=== PATIENT | female | born 2000 | race Caucasian/White ===

== ENCOUNTER 2023-07-10 02:41 | Inpatient (IN) ==
[2023-07-10] MEDS ORDERED: LIDOCAINE 1% LOCAL 20 ML VIAL INFIL PRN (03:20)
[2023-07-10] MEDS: LACTATED RINGER'S 1,000 ML IV PRN ×3 (03:30→08:17)
[2023-07-10 04:02] LABS: Hematocrit (blood only) 33.2 % (37.0-47.0); Hemoglobin 11.2 g/dl (12.0-16.0); Mean Corpuscular Hemoglobin 28.6 pg (25.0-34.0); Mean Corpuscular Hgb Conc 33.7 g/dL (32.0-36.0); Mean Corpuscular Volume 84.9 fL (80.0-100.0); Platelet Count 241 K/uL (130-400); RDW Standard Deviation 45.9 fL (36.4-46.3); Red Blood Count 3.91 M/uL (4.20-5.40); White Blood Count 11.85 K/ul (4.8-10.8)
[2023-07-10] MEDS ORDERED: LIDOCAINE 2%/EPINEPHRINE 1:200,000 20 ML PF ONE (04:09)
[2023-07-10] MEDS ORDERED: fentaNYL citrate PF 100 MCG/2 ML VIAL ONE (04:09)
[2023-07-10] MEDS ORDERED: SODIUM CHLORIDE 0.9% PF INJ 10 ML VIAL ONE (04:09)
[2023-07-10] MEDS ORDERED: ePHEDrine sulfate 50 MG/ML AMP ONE (04:09)
[2023-07-10] MEDS ORDERED: BUPIVACAINE 0.25% PF 30 ML VIAL ONE (04:09)
[2023-07-10] MEDS ORDERED: fentaNYL 2MCG/ML ROPIVACAINE 1.25MG/ML 100 ML BAG EPI ONE (04:10)
[2023-07-10] MEDS ORDERED: NALBUPHINE HCL INJ 10 MG/ML AMP IV PRN (04:42)
[2023-07-10] MEDS ORDERED: fentaNYL citrate PF 100 MCG/2 ML VIAL EPI STA (04:42)
[2023-07-10] MEDS ORDERED: NALOXONE HCL 0.4 MG/1 ML VIAL/CARP IV PRN (04:42)
[2023-07-10] MEDS ORDERED: SODIUM CHLORIDE 0.9% PF INJ 10 ML VIAL EPI STA (04:42)
[2023-07-10] MEDS ORDERED: LIDOCAINE 2%/EPINEPHRINE 1:200,000 20 ML PF EPI STA (04:42)
[2023-07-10] MEDS ORDERED: fentaNYL 2MCG/ML ROPIVACAINE 1.25MG/ML 100 ML BAG EPI PRN (04:42)
[2023-07-10] MEDS ORDERED: LIDOCAINE 2% MPF LOCAL 5 ML VIAL EPI PRN (04:42)
[2023-07-10] MEDS ORDERED: SODIUM CHLORIDE 0.9% PF INJ 10 ML VIAL EPI PRN (04:42)
[2023-07-10] MEDS ORDERED: ePHEDrine sulfate 50 MG/ML AMP IV PRN (04:42)
[2023-07-10] MEDS ORDERED: BUPIVACAINE 0.25% PF 30 ML VIAL EPI STA (04:42)
[2023-07-10] MEDS ORDERED: NALOXONE HCL 1 MG in SODIUM CHLORIDE 0.9% 1000ML 1,000 ML IV PRN (04:42)
[2023-07-10] MEDS ORDERED: fentaNYL citrate PF 100 MCG/2 ML VIAL EPI PRN (04:42)
[2023-07-10] MEDS ORDERED: ROPIVACAINE 0.5% PF 5 MG/ML 20 ML VIAL EPI PRN (04:42)
[2023-07-10] MEDS ORDERED: BUPIVACAINE 0.25% PF 30 ML VIAL EPI PRN (04:42)
[2023-07-10] MEDS ORDERED: diphenhydrAMINE 50 MG/ML VIAL IV PRN (04:42)
--- NOTE | 2023-07-10 04:42 | Anesthesiology Consultation ---
Date of Service July 10, 2023 Assessment & Plan Chart Review Chart Review: Patient NOT seen in Pre Admission Testing and Acceptable Risk for Labor Epidural Consults Requested none History Height/Weight Height: 5 ft 4 in Weight: 102.965 kg Allergies Allergy/AdvReac Type Severity Reaction Status Date / Time No Known Allergies Allergy Verified 07/06/23 08:54 Medications Home Medications Medication Instructions Recorded Confirmed Last Taken albuterol sulfate 90 mcg/actuation 2 puff inhalation Q6H PRN asthma 09/15/21 07/10/23 3 Weeks Ago aerosol inhaler ~04/18/23 prenat.vits,dean,ydb-rejn-hziym 1 tab PO DAILY 12/08/22 07/10/23 07/09/23 beclomethasone dipropionate 80 1 inh inhalation DAILY 03/01/23 07/10/23 07/09/23 mcg/actuation HFA breath activated aerosol (Qvar RediHaler) sertraline 50 mg tablet (Zoloft) 50 mg PO DAILY #60 tabs 03/09/23 07/10/23 07/09/23 iron 15 mg PO DAILY 05/09/23 07/10/23 05/08/23 loratadine 10 mg tablet 10 mg PO DAILY PRN Allergy Symptoms 05/09/23 07/06/23 07/08/23 ondansetron 4 mg disintegrating 4 mg PO Q6H PRN nausea and 05/09/23 07/10/23 07/10/23 tablet vomiting #20 tabs ondansetron 4 mg disintegrating 4 mg PO Q8H PRN nausea and 06/30/23 07/06/23 Unknown tablet vomiting #30 tabs Active Medications Generic Name Dose Route Start Last Admin Trade Name Freq PRN Reason Stop Dose Admin Lactated Ringer's 1,000 mls @ 125 mls/hr 07/10/23 03:20 07/10/23 04:30 Lr IV 07/12/23 03:19 999 mls/hr .Q8H PRN Administration L&D Protocol Protocol Past Medical History Medical History Allergy-induced asthma uses PRN inh once weekly on avg Anxiety and depression Bright red rectal bleeding Frequent UTI GERD (gastroesophageal reflux disease) diet controlled History of COVID-19 01/2020; loss of taste/smell, cough, sob, body aches, pneumonia - states "lungs still don't feel the same." IBS (irritable bowel syndrome) Peptic ulcer Past Family History Family History Grandmother (Paternal) Cancer Ulcerative colitis Colorectal cancer Grandmother (Maternal) Breast cancer Other No family history of adverse response to anesthesia Denies family history of Crohn's disease Past Surgical History Surgical History [place] teeth extracted Social History Smoking Status: Never smoker Do You Dip or Chew Tobacco: No Hx Alcohol Use: No Hx Substance Use: No substance use type: does not use Physical Exam Vital Signs Last Vital Signs Temp 98.8 F 07/10/23 03:15 Pulse 74 07/10/23 04:39 Resp 20 07/10/23 04:13 BP 129/77 07/10/23 04:18 Pulse Ox 99 07/10/23 04:39 Testing Laboratory Results 07/10/23 03:42
[2023-07-10] MEDS ORDERED: ONDANSETRON INJ 2 MG/ML 2 ML VIAL IV PRN (07:54)
--- NOTE | 2023-07-10 09:35 | Labor Progress Brief Note ---
Date of Service July 10, 2023 Subjective Comfortable w/ epidural Assessment & Plan (1) SROM (spontaneous rupture of membranes): Plan: 23 yo G1 at 38 1/7 wga admitted w/ srom/labor VSS Fetus cat 1 Labor - progressing spontaneously, arom of forebag. Reviewed prior growth, discussed potential impact on labor, pushing, risk of shoulder. Pt aware GBS neg epidural in place Admission and Anticipated Discharge Date Admission Date: July 10, 2023 Physical Exam Genitourinary: Manual OB Exam: + cervical dilation 8 cm, + cervical effacement 90%, + station 0 and + amniotic fluid (arom forebag) OB Exam Monitor Tracing: + external FHT monitor used, + external uterine monitor used (q3) and + category I (130/mod/+accel/-decel) Results & Data Vital Signs (Past 12 Hours) Vital Signs Temp Pulse Resp BP Pulse Ox 07/10/23 07:15 97.7 F 18 07/10/23 09:29 69 99 07/10/23 09:24 99 07/10/23 09:24 70 07/10/23 09:24 70 128/65 07/10/23 09:19 71 98 07/10/23 09:14 51 L 97 07/10/23 09:03 97.9 F 07/10/23 09:09 51 L 97 07/10/23 09:10 49 L 96/49 L 07/10/23 09:04 54 L 97 07/10/23 09:00 18 07/10/23 09:00 18 07/10/23 08:59 53 L 98 07/10/23 08:54 99 07/10/23 08:54 58 L 07/10/23 08:54 53 L 100/53 L 07/10/23 08:49 58 L 98 07/10/23 07:30 18 07/10/23 07:30 18 07/10/23 08:30 20 07/10/23 08:30 20 07/10/23 08:44 51 L 99 07/10/23 08:00 18 07/10/23 08:00 18 07/10/23 08:39 52 L 99 07/10/23 08:40 51 L 105/51 L 07/10/23 08:34 52 L 100 07/10/23 08:29 57 L 100 07/10/23 08:24 54 L 95/50 L 99 07/10/23 08:19 55 L 99 07/10/23 08:15 51 L 100/51 L 07/10/23 08:14 54 L 99 07/10/23 08:09 58 L 99 07/10/23 08:04 58 L 99 07/10/23 07:59 58 L 99 07/10/23 07:55 54 L 115/61 07/10/23 07:54 55 L 100 07/10/23 07:49 67 98 07/10/23 07:44 55 L 100 07/10/23 07:39 55 L 98 07/10/23 07:40 59 L 110/69 07/10/23 07:34 55 L 98 07/10/23 07:29 70 98 07/10/23 07:24 61 109/57 L 99 07/10/23 07:19 55 L 99 07/10/23 07:14 71 100 07/10/23 07:09 100 07/10/23 07:09 59 L 07/10/23 07:09 58 L 126/70 07/10/23 07:04 56 L 100 07/10/23 07:00 18 07/10/23 07:00 18 07/10/23 06:59 61 99 07/10/23 06:54 98 07/10/23 06:54 51 L 07/10/23 06:54 52 L 99/51 L 07/10/23 06:49 53 L 98 07/10/23 06:44 55 L 99 07/10/23 06:30 18 07/10/23 06:30 18 07/10/23 06:39 100 07/10/23 06:39 56 L 07/10/23 06:39 49 L 98/54 L 07/10/23 06:34 64 100 07/10/23 06:29 74 99 07/10/23 06:25 51 L 96/49 L 07/10/23 06:24 52 L 98 07/10/23 06:19 53 L 99 07/10/23 06:14 57 L 100 07/10/23 06:09 59 L 100/51 L 100 07/10/23 06:04 62 100 07/10/23 05:06 18 07/10/23 05:06 18 07/10/23 05:10 18 07/10/23 05:10 18 07/10/23 05:30 18 07/10/23 05:30 18 07/10/23 06:00 18 07/10/23 06:00 18 07/10/23 05:59 56 L 100 07/10/23 05:54 70 100 07/10/23 05:51 59 L 18 108/57 L 07/10/23 05:49 61 100 07/10/23 05:30 18 07/10/23 05:30 18 07/10/23 05:45 53 L 18 113/55 L 07/10/23 05:44 54 L 100 07/10/23 05:40 54 L 18 105/53 L 07/10/23 05:39 59 L 100 07/10/23 05:34 75 100 07/10/23 05:35 61 18 113/58 L 07/10/23 05:31 73 115/67 07/10/23 05:29 73 100 07/10/23 04:40 20 07/10/23 04:40 20 07/10/23 05:06 18 07/10/23 05:06 97.9 F 18 07/10/23 05:24 59 L 100 07/10/23 05:25 60 18 107/53 L 07/10/23 05:19 65 116/57 L 100 07/10/23 05:18 68 18 120/58 L 07/10/23 05:15 61 112/55 L 07/10/23 05:14 61 100 07/10/23 05:13 64 18 118/56 L 07/10/23 05:11 62 118/59 L 07/10/23 05:09 66 121/58 L 99 07/10/23 05:07 68 116/56 L 07/10/23 05:05 63 119/58 L 07/10/23 05:04 59 L 18 99 07/10/23 05:02 67 127/60 07/10/23 04:59 58 L 100 07/10/23 04:54 73 100 07/10/23 04:49 69 100 07/10/23 04:30 20 07/10/23 04:30 20 07/10/23 04:39 74 99 07/10/23 04:34 79 100 07/10/23 04:29 69 100 08/12/23 04:13 20 07/10/23 04:13 20 07/10/23 04:24 79 100 07/10/23 04:19 84 100 07/10/23 04:18 68 129/77 07/10/23 03:45 20 07/10/23 03:45 20 07/10/23 03:15 18 07/10/23 03:15 98.8 F 18 07/10/23 03:03 69 131/82 07/10/23 02:58 18 Coding Level of Care Code None Diagnoses SROM (spontaneous rupture of membranes)
[2023-07-10] MEDS: OXYTOCIN 30 UNITS/500 ML BAG IV PRN ×2 (10:52→12:08)
--- NOTE | 2023-07-10 11:21 | Delivery Summary ---
Vaginal Delivery Summary Date of Service July 10, 2023 Vaginal Delivery Summary and 2nd Degree LAC PREOPERATIVE DIAGNOSIS: 1. Single intrauterine at 38 1/7 wga 2. SROM 3. Labor POSTOPERATIVE DIAGNOSIS: 1. Single intrauterine at 38 1/7 wga 2. SROM 3. Labor 4. Delivered PROCEDURE: 1. Normal spontaneous vaginal delivery. SURGEON: Cecilia Lynn MD ANESTHESIA: Epidural. ESTIMATED BLOOD LOSS: 300 mL FLUIDS: Continuous LR. URINE OUTPUT: Not measured. COMPLICATIONS: None. CONDITION: Stable. INDICATIONS: 23 yo G1 at 38 1/7 wga presented early this AM w/ SROM and contractions, found to be ruptured on arrival. She was 2cm and continued to progress spontaneously. She received an epidural for pain control. She A forebag was ruptured and she continued to progress spontaneously to complete and desired to push FINDINGS: A viable male , weight pending with Apgars of 8 and 9 at 1 and 5 minutes respectively. SPECIMEN: Cord blood OPERATIVE REPORT: The patient progressed to 10 cm, 100% effaced and +2 station, pushed over intact perineum with anesthesia to deliver a viable male infant, weight and Apgars as above. Head of delivered in JORDAN position. No nuchal cord was present. Body and shoulders were delivered without difficulty. was delivered to maternal abdomen and nursing staff. Delayed cord clamping was performed for 60 seconds. Cord was clamped and cut. Cord blood was obtained. Placenta delivered spontaneously intact with 3-vessel cord. IV oxytocin and fundal massage were given for excellent hemostasis. Vagina, cervix, perineum, and placenta were inspected. A second degree laceration was repaired using 3-[address]-1. A small left vaginal wall tear was repaired using 4-0 vicryl on an SH. There was good hemostasis Sponge and needle counts correct x2. No sponges were left behind. Mother and stable in immediate period. [facility] Vaginal Delivery Charge Vaginal Delivery Codes: 60087 global code for the antepartum, delivery, and post- Delivery Type Details: and 2nd Degree LAC
[2023-07-10] MEDS ORDERED: OXYTOCIN 30 UNITS/500 ML BAG IV PRN (11:41)
[2023-07-10] MEDS ORDERED: bisacodyL 10 MG SUPP PR PRN (11:41)
[2023-07-10] MEDS ORDERED: HYDROCORTISONE ACETATE 25 MG SUPP PR PRN (11:41)
[2023-07-10] MEDS ORDERED: ALBUTEROL HFA 8 GM INHALER INH PRN (11:41)
[2023-07-10] MEDS ORDERED: BENZOCAINE 20% SPRY 85 APPLN/85 GM CAN EXT PRN (11:41)
[2023-07-10] MEDS ORDERED: DIPHTHERIA/TETANUS/PERTUSSIS Vaccine (Tdap, Age 7+yrs) 0.5mL SYR/VL IM ONE (11:41)
--- NOTE | 2023-07-10 12:03 | Anesthesia Procedure Note ---
Date of Service July 10, 2023 Anesthesia Post Epidural Note Vital Signs Vital Signs: Temp Pulse Resp BP Pulse Ox 99.7 F H 57 L 20 108/58 L 98 07/10/23 11:15 07/10/23 11:59 07/10/23 11:15 07/10/23 11:57 07/10/23 11:59 Pain Intensity Hip: Pain Intensity: 0 Notes Mental Status: alert / awake / arousable and participated in evaluation Nausea / Vomiting: adequately controlled Pain: adequately controlled Airway Patency, RR, SpO2: stable & adequate BP & HR: stable & adequate Hydration State: stable & adequate Neuraxial Anesthesia: was administered and sensory block is resolving Anesthetic Complications: no major complications apparent and Pt Satisfied with anesthetic care Epidural: Removed without complications and With tip intact
[2023-07-10] MEDS: IBUPROFEN 600 MG TAB PO PRN ×2 (15:47→23:17)
[2023-07-10] MEDS: ACETAMINOPHEN 325 MG TAB PO PRN ×2 (15:55→23:18)
[2023-07-10] MEDS: DOCUSATE SODIUM 100 MG CAP PO SCH (20:01)
[2023-07-10] MEDS ORDERED: Nursing to Pharmacy Communication SCH ×2 (20:15→23:30)
[2023-07-10] MEDS: BECLOMETHASONE DIP HFA 80 MCG 10.6 GM INH INH SCH (22:13)
--- NOTE | 2023-07-11 07:33 | Obstetrical Progress Note ---
Date of Service July 11, 2023 Assessment & Plan (1) Encounter for care and examination after delivery: 23 yo PP1 from , doing well -Meeting all pp milestones. Offered to look at perineum due to episode of pain, appears appropriate given timing from delivery and pain is adequately managed w/ meds at this point. Reviewed meds and measures to use for comfort, pt aware -A+/rubella immune/ -f/u 6 weeks for appt, continue routine pp care Subjective Ambulation: ambulating normally Voiding: no voiding problems Passing Gas:: Yes Diet Tolerance:: regular diet Lochia:: Small Feeding Type:: breast feeding Did have episode of sharp perineal pain once yesterday afternoon. Is still pretty sore below but much better than that episode, pain well managed with medication. Review of Systems Denies fevers, chills, n/v, WILLIAM, CP, SOB Physical Exam Constitutional WD/WN, vitals as above no acute distress Respiratory normal respiratory effort, lungs clear to auscultation Cardiovascular RRR, no murmur, no edema Gastrointestinal (Abdomen) Percussion/Palpation: abdomen soft; abdomen nontender fundus firm at umbilicus and NT Musculoskeletal BLE symmetric, nonerythematous, nontender Genitourinary Vulva slightly swollen but appropriate, no abnormal areas of swelling noted. Gentle digital exam does not reveal obvious hematoma Results & Data Vital Signs (Past 12 Hours) Vital Signs Temp Pulse Resp BP Pulse Ox O2 Del Method 07/11/23 03:05 98.4 F 69 18 107/69 99 Room Air 07/10/23 23:00 97.7 F 66 18 111/72 100 Room Air 07/10/23 19:35 Room Air 07/10/23 19:35 98.1 F 62 18 95/57 L 98 Room Air
[2023-07-11] MEDS: PRENATAL VITAMIN 1 TAB PO SCH (08:36)
[2023-07-11] MEDS: FERROUS SULFATE 325 MG TAB PO SCH (08:36)
[2023-07-11] MEDS: IBUPROFEN 600 MG TAB PO PRN ×2 (08:36→14:05)
[2023-07-11] MEDS: ACETAMINOPHEN 325 MG TAB PO PRN ×2 (08:36→14:05)
[2023-07-11] MEDS: DOCUSATE SODIUM 100 MG CAP PO SCH ×2 (08:36→20:20)
[2023-07-11] MEDS ORDERED: FLUTICASONE FUROATE 100MCG 14 PUFFS/INHALER INH SCH (09:00)
[2023-07-11] MEDS ORDERED: SERTRALINE HCL 50 MG TABLET PO SCH ×2 (09:00→21:00)
[2023-07-11] MEDS ORDERED: BECLOMETHASONE DIP HFA 80 MCG 10.6 GM INH INH SCH (09:00)
--- NOTE | 2023-07-11 19:54 | Obstetrical Progress Note ---
Date of Service <Tod Victor MD - Last Filed: 07/12/23 06:46> July 11, 2023 Assessment & Plan <Tod Victor MD - Last Filed: 07/12/23 06:46> (1) care following vaginal delivery: (2) Encounter for care and examination after delivery: Plan 23 yo , status post on 07/10/23 - Pt is doing well clinically. Feels well today. Eating well, voiding well, ambulating well. Pain well controlled with PRN pain meds. - Routine care -- OOB, ambulation, diet progression as tolerated Vital Signs reviewed and mostly WNL (Tmax at 37.6) with following exceptions: Low diastolic BP readings: 96/58, 95/57 Hemoglobin Reviewed. 11.2 (07/10/23) (today). Blood Type: A+, GBS-, Rubella Immune. Encourage ambulation, monitor and control pain with Motrin PRN, resume regular diet, monitor lochia. Breast feeding encouraged. After discharge will have 6 week follow-up with Dr. Velez. Pt counselled on discharge instructions. <Cecilia Lynn MD - Last Filed: 07/12/23 07:22> (1) care following vaginal delivery: (2) Encounter for care and examination after delivery: Subjective <Tod Victor MD - Last Filed: 07/12/23 06:46> Ambulation: ambulating normally (soreness around the stitches area) Voiding: no voiding problems and no incontinence (no urge to defacate yet) Passing Gas:: Yes Diet Tolerance:: regular diet Lochia:: Small (passed a reddish blood clot, size of a half-dollar) Feeding Type:: breast feeding (formula supplementation as needed) Current Pain Level(1-10): 4 (perineal pain worse when walking, sitting up, on commode; cramping pain too) 23 yo F , s/p day 2. Review of Systems All systems reviewed & are unremarkable except as noted in HPI & below Constitutional: no fever or no chills Eyes: no diplopia or no worsening vision Respiratory: + dyspnea on exertion (mild PLEITEZ since delivery); no cough Cardiovascular: no chest pain or no palpitations Breast: + breast pain (pain latching and sucking) Gastrointestinal: + nausea (mild nausea); no vomiting or no diarrhea/loose stools Genitourinary (female): + dysuria (feels like it could be due to perineal lac); no urinary frequency or no urinary urgency Musculoskeletal: + swelling (right foot feels "tight", no calf pain); no myalgia or no body aches Integumentary: no rash Physical Exam <Tod Victor MD - Last Filed: 07/12/23 06:46> Constitutional WD/WN, vitals as above Respiratory normal respiratory effort, lungs clear to auscultation Cardiovascular RRR, no murmur, no edema Gastrointestinal (Abdomen) normal bowel sounds, soft, nontender, no hepatosplenomegaly somewhat difficult to feel that fundus, but seemed to be about 3 cm below the umbilicus Musculoskeletal Extremities: + foot abnormality Right (noticeable edema in right foot) <Cecilia Lynn MD - Last Filed: 07/12/23 07:22> Co-Signing Physician Notes Resident Physician Supervision Note: I interviewed and examined the patient. Discussed with Dr. Victor and agree with findings and plan as documented in the note. Any exceptions or clarifications are listed here: PP2 s/p . Having some right foot swelling but no calf tenderness. Noted some SOB w/ activity but says it feels like her usual asthma SOB, just without the wheezing. Pain managed w/ meds and improving. VSS, O2 sat wnl. Exam benign and wnl, calves symmetric, NT, nonerythematous. Discussed propping feet up and moving to help with foot swelling. Suspect SOB is related to asthma as VSS, O2sat is normal, and low suspicion for PE. Will have her use her inhaler as she usually reserves that for if she is wheezing and make sure that it improves with it Documented By: Cecilia Lynn MD
[2023-07-11] MEDS ORDERED: bisacodyL 5 MG TABEC PO SCH (20:00)
[2023-07-11] MEDS: BECLOMETHASONE DIP HFA 80 MCG 10.6 GM INH INH SCH (22:11)
[2023-07-12] MEDS: IBUPROFEN 600 MG TAB PO PRN ×2 (01:43→08:00)
[2023-07-12] MEDS: ACETAMINOPHEN 325 MG TAB PO PRN ×2 (01:45→08:00)
[2023-07-12] MEDS: DOCUSATE SODIUM 100 MG CAP PO SCH (08:00)
[2023-07-12] MEDS: PRENATAL VITAMIN 1 TAB PO SCH (08:00)
[2023-07-12] MEDS: FERROUS SULFATE 325 MG TAB PO SCH (08:00)
--- NOTE | 2023-07-14 14:33 | History & Physical Report ---
Date of Service July 10, 2023 Assessment & Plan (1) SROM (spontaneous rupture of membranes): (2) Normal labor: (3) Supervision of normal intrauterine in primigravida: Nydia García is a 23-year-old G1, P0 at 38 weeks gestational age presents with spontaneous rupture of membranes and early labor. 1. Fetus-category 1 2. Labor-spontaneous rupture of membranes and appears to be an early labor. We will continue to monitor and augment as needed 3. GBS negative 4. Vitals within normal limits History of Present Illness Primary Care Provider: Jay García is a 23-year-old G1, P0 at 38 weeks gestational age presents with spontaneous rupture membranes with bleeding and early labor. complicated by asthma. OB Labs: Blood Type A Positive 01/12/23 Antibody Screen NEGATIVE 01/12/23 Hemoglobin 11.0 g/dl (12.0-16.0) L 05/09/23 Hematocrit 33.4 % (37.0-47.0) L 05/09/23 Mean Corpuscular Volume 86.3 fL (80.0-100.0) 05/09/23 Platelet Count 194 K/uL (130-400) 05/09/23 Rubella IgG Antibody Immune (Immune) 01/12/23 Rapid Plasma Reagin Nonreactive (Nonreactive) 01/12/23 Hepatitis B Surface Antigen. NON-REACTIVE (NON-REACTIVE) 01/12/23 Hepatitis C Antibody (EIA) NON-REACTIVE (NON-REACTIVE) 01/12/23 HIV (1&2) Ag and Ab Confirmation NON-REACTIVE (NON-REACTIVE) 01/12/23 Glucose 1 Hour 50 gm Load 105 mg/dl (70-130) 05/04/23 Maternal Serum Alpha Fetoprotein 42.1 ng/mL 02/09/23 OB Optional Labs: Chlamydia trachomatis RNA Not Detected (NotDetected) 12/14/22 Neisseria gonorrhoeae RNA Not Detected (NotDetected) 12/14/22 Thyroid Stimulating Hormone (TSH) 2.997 uIu/ml (0.300-4.500) 03/01/23 Alpha Fetoprotein Triple Screen SEE NOTE 02/09/23 Labs Reviewed: cf/sma-negative--mln cfdna-low risk--mln afp neg--akh Allergies Allergy/AdvReac Type Severity Reaction Status Date / Time No Known Allergies Allergy Verified 07/06/23 08:54 Home Medications Medication Instructions Recorded Confirmed Type albuterol sulfate 90 mcg/actuation 2 puff inhalation Q6H PRN asthma 09/15/21 07/10/23 History aerosol inhaler prenat.vits,dean,tqa-glvq-ilkun 1 tab PO DAILY 12/08/22 07/10/23 History beclomethasone dipropionate 80 1 inh inhalation DAILY 03/01/23 07/10/23 History mcg/actuation HFA breath activated aerosol (Qvar RediHaler) sertraline 50 mg tablet (Zoloft) 50 mg PO DAILY #60 tabs 03/09/23 07/10/23 Rx iron 15 mg PO DAILY 05/09/23 07/10/23 History loratadine 10 mg tablet 10 mg PO DAILY PRN Allergy Symptoms 05/09/23 07/06/23 History ondansetron 4 mg disintegrating 4 mg PO Q6H PRN nausea and 05/09/23 07/10/23 Rx tablet vomiting #20 tabs breast pump #1 ea 07/12/23 Rx Patient History Medical History Allergy-induced asthma uses PRN inh once weekly on avg Anxiety and depression Bright red rectal bleeding Frequent UTI GERD (gastroesophageal reflux disease) diet controlled History of COVID-19 01/2020; loss of taste/smell, cough, sob, body aches, pneumonia - states "lungs still don't feel the same." IBS (irritable bowel syndrome) Peptic ulcer Surgical History [place] teeth extracted Family History Grandmother (Paternal) Cancer Ulcerative colitis Colorectal cancer Grandmother (Maternal) Breast cancer Other No family history of adverse response to anesthesia Denies family history of Crohn's disease Social History (Updated 07/10/23 @ 02:58 by Dorcas Milligan RN) Smoking Status: Never smoker Second Hand Exposure: No; Do You Dip or Chew Tobacco: No; Hx Alcohol Use: No Hx Substance Use: No Preferred Language: Citizen Of [place] Communication Ability: Effective Catering Assistant Required: No Beliefs That Will Affect Care: None marital status: marital status details: Jayjay (25) [phone] Current Living Situation: Spouse Current Living Situation Comment: lives with Jayjay current occupational status: unemployed current occupation: Sub teacher Feels Safe at Home: Yes Assistive Devices: Contacts Physical Exam Genitourinary: OB Exam Abdomen: + vertex Manual OB Exam: + cervical dilation 2 cm, + cervical effacement 50%, + station -2 and + amniotic fluid bloody OB Exam Monitor Tracing: + external FHT monitor used, + external uterine monitor used, + category I and + normal FHT variability Patient noted to be grossly ruptured. Minimal blood noted at time of exam. Results & Data Vital Signs (Past 12 Hours) Vital Signs Pulse Resp BP 07/10/23 03:03 69 131/82 07/10/23 02:58 18 Coding Level of Care Code None Diagnoses SROM (spontaneous rupture of membranes) Normal labor O80; Z37.9 Supervision of normal intrauterine in primigravida Z34.00
== END 2023-07-12 11:05 | disposition home or self-care (01) | DRG 807 ==
LOC: OPB 02:41 → 4S1 02:47 → 4E2 13:54
DX: Z37.0 Single live birth; Z3A.38 38 weeks gestation of pregnancy; O70.1 Second degree perineal laceration during delivery

== ENCOUNTER 2025-10-24 03:37 | Inpatient (IN) ==
[2025-10-24] MEDS ORDERED: LIDOCAINE 1% LOCAL 20 ML VIAL INFIL PRN (03:52)
[2025-10-24] MEDS ORDERED: OXYTOCIN 30 UNITS/NSS 30 UNITS/500 ML BAG IV PRN (03:52)
[2025-10-24] MEDS: LACTATED RINGER'S 1,000 ML IV PRN (04:00)
--- NOTE | 2025-10-24 04:07 | History & Physical Report ---
Date of Service October 24, 2025 Assessment & Plan (1) Encounter for supervision of normal in multigravida: Plan: Admit for labor. Desires epidural. FHT, toco, labs. Admission and Anticipated Discharge Date Admission Date: October 24, 2025 History of Present Illness Chief Complaint: labor Primary Care Provider: LORNA Alcala 25yo @ 37 6/7, here for contractions. Started devante yesterday evening around 5pm, increased overnight. No leaking, no bleeding. + movement. Was 3cm in office yesterday. and Delivery Plans Obesity (BMI between 35-39 @ beginning of ) *Growth US @ 32 wks *Weekly NSTs @ 36wks Hepatitis B non immune- encouraged to see PCP for vaccine Hypothyroidism Gestational Diabetes Growth u/s's q 4 weeks Allergies Allergy/AdvReac Type Severity Reaction Status Date / Time No Known Allergies Allergy Verified 10/23/25 08:44 Home Medications Medication Instructions Recorded Confirmed Type albuterol sulfate 90 mcg/actuation 2 puff inhalation Q6H PRN asthma 09/15/21 10/23/25 History aerosol inhaler PNV no.[id number] PO 03/21/25 10/23/25 History [ Gummies] sertraline 50 mg tablet (Zoloft) 25 mg PO DAILY 03/23/25 10/23/25 History levothyroxine 25 mcg tablet 25 mcg PO DAILY #30 tabs 07/25/25 10/23/25 Rx ondansetron 4 mg disintegrating 4 mg PO TID PRN nausea and 07/25/25 10/23/25 Rx tablet vomiting #90 tabs docusate sodium [Colace] PO PRN 08/22/25 10/23/25 History inulin [Fiber Gummies] PO 08/22/25 10/23/25 History lactase [Lactaid] PO PRN 08/22/25 10/23/25 History simethicone [Gas-X] PO PRN 08/22/25 10/23/25 History acetone (urine) test (Ketone Urine #50 ea 09/21/25 10/23/25 Rx Test strips) blood sugar diagnostic (Accu-Chek #150 ea 09/21/25 10/23/25 Rx Guide test strips) blood-glucose meter (Accu-Chek #1 ea 09/21/25 10/23/25 Rx Guide Glucose Meter) lancets (Accu-Chek Softclix #150 ea 09/21/25 10/23/25 Rx Lancets) ondansetron 4 mg disintegrating 4 mg PO Q8H PRN nausea and 10/04/25 10/23/25 Rx tablet vomiting #30 tabs Patient History Medical History OCD (obsessive compulsive disorder) Panic attack Varicella vaccination Bacterial vaginosis Asthma Premenstrual syndrome Dyspareunia, female Irritable bowel syndrome with diarrhea Chronic diarrhea History of COVID-19 Frequent UTI GERD (gastroesophageal reflux disease) Anxiety and depression Allergy-induced asthma Peptic ulcer Bright red rectal bleeding Surgical History [place] teeth extracted Family History Grandmother (Paternal) Cancer Ulcerative colitis Colorectal cancer Grandmother (Maternal) Breast cancer Other No family history of adverse response to anesthesia Denies family history of Ovarian cancer Crohn's disease Social History Smoking Status: Never smoker Second Hand Exposure: No; Do You Dip or Chew Tobacco: No; Hx Alcohol Use: No Hx Substance Use: No Preferred Language: [place] Communication Ability: Effective Instrumental Music Teacher Required: No Beliefs That Will Affect Care: None marital status: marital status details: Jayjay Erickson (27) [phone] Current Living Situation: Spouse and Family Current Living Situation Comment: lives with , child, dogs current occupational status: unemployed and student current occupation: Sub teacher How many Children do You have: 1 Feels Safe at Home: Yes Childhood Exposure to Second-Hand Smoke: No Diet: regular caffeine: No Dental Care, Regularly: Yes Physical Activity Frequency: 5-6 Times per Week Physical Activity Frequency Comment: Walks 3 miles a day with the dogs and goes to the gym 5 days/wk. Seatbelt Use: always Sunscreen Use: Yes Assistive Devices: Contacts Review of Systems All systems reviewed & are unremarkable except as noted in HPI & below Physical Exam Physical Exam: FHT Cat 1 [place] Q2-4 SVE 4-5cm per RN exam Constitutional: WD/WN, vitals as above Respiratory: normal respiratory effort, lungs clear to auscultation no respiratory distress Cardiovascular: Rate/Rhythm: regular rate and regular rhythm Gastrointestinal (Abdomen): Inspection/Auscultation: abdomen normal to inspection Percussion/Palpation: abdomen soft; abdomen nontender Gravid. No s/s chorio or abruption. Skin: no rashes, warm and dry Psychiatric: A+Ox3, euthymic affect Results & Data Vital Signs (Past 12 Hours) Vital Signs Pulse BP 10/24/25 04:03 62 137/75 Coding Level of Care Code None Diagnoses Encounter for supervision of normal in multigravida Z34.80
[2025-10-24 04:43] LABS: Hematocrit (blood only) 32.7 % (37.0-47.0); Hemoglobin 10.9 g/dL (12.0-16.0); Mean Corpuscular Hemoglobin 27.8 pg (25.0-34.0); Mean Corpuscular Volume 83.4 fL (80.0-100.0); Platelet Count 233 K/uL (130-400); RDW Standard Deviation 45.8 fL (36.4-46.3); Red Blood Count 3.92 M/uL (4.20-5.40); White Blood Count 12.95 K/ul (4.8-10.8)
--- NOTE | 2025-10-24 04:54 | Anesthesiology Consultation ---
Date of Service October 24, 2025 Assessment & Plan (1) Encounter for pre-operative examination: Chart Review Chart Review: Acceptable Risk for Labor Epidural History Height/Weight Height: 5 ft 4 in Weight: 106.141 kg Allergies Allergy/AdvReac Type Severity Reaction Status Date / Time No Known Allergies Allergy Verified 10/23/25 08:44 Medications Home Medications Medication Instructions Recorded Confirmed Last Taken albuterol sulfate 90 mcg/actuation 2 puff inhalation Q6H PRN asthma 09/15/21 10/23/25 3 Weeks Ago aerosol inhaler ~04/18/23 PNV [id number] PO 03/21/25 10/23/25 Unknown [ Gummies] sertraline 50 mg tablet (Zoloft) 25 mg PO DAILY 03/23/25 10/23/25 Unknown levothyroxine 25 mcg tablet 25 mcg PO DAILY #30 tabs 07/25/25 10/23/25 Unknown ondansetron 4 mg disintegrating 4 mg PO TID PRN nausea and 07/25/25 10/23/25 Unknown tablet vomiting #90 tabs docusate sodium [Colace] PO PRN 08/22/25 10/23/25 Unknown inulin [Fiber Gummies] PO 08/22/25 10/23/25 Unknown lactase [Lactaid] PO PRN 08/22/25 10/23/25 Unknown simethicone [Gas-X] PO PRN 08/22/25 10/23/25 Unknown acetone (urine) test (Ketone Urine #50 ea 09/21/25 10/23/25 Unknown Test strips) blood sugar diagnostic (Accu-Chek #150 ea 09/21/25 10/23/25 Unknown Guide test strips) blood-glucose meter (Accu-Chek #1 ea 09/21/25 10/23/25 Unknown Guide Glucose Meter) lancets (Accu-Chek Softclix #150 ea 09/21/25 10/23/25 Unknown Lancets) ondansetron 4 mg disintegrating 4 mg PO Q8H PRN nausea and 10/04/25 10/23/25 Unknown tablet vomiting #30 tabs Active Medications Generic Name Dose Route Start Last Admin Trade Name Freq PRN Reason Stop Dose Admin Lactated Ringer's 1,000 mls @ 125 mls/hr 10/24/25 03:52 10/24/25 04:00 Lr IV 10/26/25 03:51 999 mls/hr .Q8H PRN Administration L&D Protocol Protocol Past Medical History Medical History (spontaneous vaginal delivery) 2022 OCD (obsessive compulsive disorder) Panic attack Varicella vaccination Bacterial vaginosis Asthma Premenstrual syndrome Dyspareunia, female Irritable bowel syndrome with diarrhea Chronic diarrhea History of COVID-19 01/2020; loss of taste/smell, cough, sob, body aches, pneumonia - states "lungs still don't feel the same." Frequent UTI GERD (gastroesophageal reflux disease) diet controlled Anxiety and depression zoloft 25mg daily Allergy-induced asthma uses PRN inh once weekly on avg Peptic ulcer Bright red rectal bleeding Past Family History Family History Grandmother (Paternal) Cancer Ulcerative colitis Colorectal cancer Grandmother (Maternal) Breast cancer Other No family history of adverse response to anesthesia Denies family history of Ovarian cancer Crohn's disease Past Surgical History Surgical History [place] teeth extracted Social History Smoking Status: Never smoker Do You Dip or Chew Tobacco: No Hx Alcohol Use: No Hx Substance Use: No substance use type: does not use Physical Exam Vital Signs Last Vital Signs Pulse 65 10/24/25 04:47 BP 137/75 10/24/25 04:03 Pulse Ox 99 10/24/25 04:47 Testing Laboratory Results 10/24/25 04:21
[2025-10-24] MEDS: Patient's HEIGHT &/or WEIGHT Needed STA (05:16)
[2025-10-24] MEDS: BUPIVACAINE 0.25% PF 30 ML VIAL ONE (05:20)
[2025-10-24] MEDS: LIDOCAINE 2%/EPINEPHRINE 1:200,000 20 ML PF ONE (05:20)
[2025-10-24] MEDS: fentANYL 2 MCG/ML BUPIVacaine 0.125%-NSS 100ML BAG ONE (05:26)
[2025-10-24] MEDS: ONDANSETRON INJ 2 MG/ML 2 ML VIAL ONE (05:29)
[2025-10-24] MEDS: SODIUM CHLORIDE 0.9% PF INJ 10 ML VIAL ONE (05:31)
[2025-10-24] MEDS ORDERED: ONDANSETRON INJ 2 MG/ML 2 ML VIAL IV PRN (05:32)
[2025-10-24] MEDS ORDERED: NALOXONE HCL 1 MG in SODIUM CHLORIDE 0.9% 1,000 ML IV PRN (05:32)
[2025-10-24] MEDS ORDERED: fentANYL 2 MCG/ML BUPIVacaine 0.125%-NSS 100ML BAG EPI PRN (05:32)
[2025-10-24] MEDS ORDERED: BUPIVACAINE 0.25% PF 30 ML VIAL EPI PRN (05:32)
[2025-10-24] MEDS ORDERED: SODIUM CHLORIDE 0.9% PF INJ 10 ML VIAL EPI PRN (05:32)
[2025-10-24] MEDS ORDERED: NALOXONE HCL 0.4 MG/1 ML VIAL/CARP IV PRN (05:32)
[2025-10-24] MEDS ORDERED: ROPIVACAINE 0.5% PF 5 MG/ML 20 ML VIAL EPI PRN (05:32)
[2025-10-24] MEDS ORDERED: LIDOCAINE 2% MPF LOCAL 5 ML VIAL EPI PRN (05:32)
--- NOTE | 2025-10-24 08:18 | Labor Progress Brief Note ---
Date of Service October 24, 2025 Subjective comfortable Assessment & Plan (1) Normal labor: Plan continue current management. fetus category one. anticipate . Admission and Anticipated Discharge Date Admission Date: October 24, 2025 Physical Exam Physical Exam: cx--6/80/-2 toco--difficult tracing arom--clear efm--140s with mod variability, accels to 170s, no decels Results & Data Vital Signs (Past 12 Hours) Vital Signs Temp Pulse Resp BP Pulse Ox 10/24/25 08:13 65 99 10/24/25 08:08 66 98 10/24/25 08:07 62 101/51 L 10/24/25 08:03 66 99 10/24/25 07:58 77 98 10/24/25 07:53 83 97 10/24/25 07:52 57 L 103/53 L 10/24/25 07:48 81 98 10/24/25 07:43 62 98 10/24/25 07:38 70 98 10/24/25 07:37 60 100/52 L 10/24/25 07:33 63 98 10/24/25 07:30 18 10/24/25 07:30 18 10/24/25 07:28 67 98 10/24/25 07:23 62 98 10/24/25 07:22 58 L 93/52 L 10/24/25 07:18 62 98 10/24/25 07:15 37.1 C 10/24/25 07:13 75 100 10/24/25 07:08 64 98 10/24/25 07:07 62 103/51 L 10/24/25 07:03 62 98 10/24/25 07:00 20 10/24/25 07:00 20 10/24/25 06:58 58 L 98 10/24/25 06:53 66 98 10/24/25 06:52 71 104/50 L 10/24/25 06:48 59 L 97 10/24/25 06:43 56 L 97 10/24/25 06:38 58 L 98 10/24/25 06:37 56 L 94/48 L 10/24/25 06:33 53 L 98 10/24/25 06:30 20 10/24/25 06:28 53 L 100 10/24/25 06:23 57 L 99 10/24/25 06:19 57 L 104/53 L 10/24/25 06:18 53 L 99 10/24/25 06:15 16 10/24/25 06:14 50 L 107/53 L 10/24/25 06:13 56 L 100 10/24/25 06:10 52 L 101/51 L 10/24/25 06:08 54 L 100 10/24/25 06:04 51 L 96/55 L 10/24/25 06:03 52 L 100 10/24/25 06:00 18 10/24/25 05:59 57 L 98/54 L 10/24/25 05:58 55 L 100 10/24/25 05:54 51 L 105/51 L 10/24/25 05:53 57 L 100 10/24/25 05:49 53 L 105/51 L 10/24/25 05:48 61 100 10/24/25 05:45 20 10/24/25 05:44 56 L 107/58 L 10/24/25 05:43 58 L 100 10/24/25 05:38 58 L 104/52 L 100 10/24/25 05:36 58 L 110/53 L 10/24/25 05:34 58 L 119/57 L 10/24/25 05:33 60 100 10/24/25 05:32 55 L 120/56 L 10/24/25 05:30 16 10/24/25 05:30 50 L 123/59 L 10/24/25 05:28 100 10/24/25 05:28 56 L 10/24/25 05:28 60 88/46 L 10/24/25 05:26 56 L 96/49 L 10/24/25 05:24 56 L 97/54 L 10/24/25 05:23 55 L 100 10/24/25 05:22 57 L 91/55 L 10/24/25 05:20 60 108/58 L 10/24/25 05:19 60 107/57 L 10/24/25 05:18 61 99 10/24/25 05:12 75 100 10/24/25 05:07 73 100 10/24/25 05:02 82 100 10/24/25 04:57 58 L 99 10/24/25 04:52 60 98 10/24/25 04:47 65 99 10/24/25 04:42 60 98 10/24/25 04:37 79 97 10/24/25 04:32 57 L 98 10/24/25 04:27 59 L 98 10/24/25 04:22 68 99 10/24/25 04:17 65 97 10/24/25 04:15 37.0 C 16 10/24/25 04:03 62 137/75 Coding Level of Care Code None Diagnoses Normal labor O80; Z37.9
[2025-10-24] MEDS: LIDOCAINE 2%/EPINEPHRINE 1:200,000 20 ML PF EPI STA (10:00)
[2025-10-24] MEDS: BUPIVACAINE 0.25% PF 30 ML VIAL EPI STA (10:00)
[2025-10-24] MEDS: SODIUM CHLORIDE 0.9% PF INJ 10 ML VIAL EPI STA (10:00)
[2025-10-24] MEDS: OXYTOCIN 30 UNITS/NSS 30 UNITS/500 ML BAG IV PRN (10:59)
--- NOTE | 2025-10-24 11:09 | Delivery Summary ---
Vaginal Delivery Summary Date of Service October 24, 2025 Vaginal Delivery Summary and 1st Degree LAC Pre-operative Diagnosis: at 37 weeks normal labor Post-operative Diagnosis: same Procedure: epidural arom first degree laceration repair QBL: 200cc Anesthesia: epidural Procedure: Patient presented in active labor. Got epidural and arom for clear fluid. Progressed to c/c/+2 . The patient pushed for 2 contractions to deliver a viable male in arabella position. The rest of the infant was then delivered without difficulty. The baby was vigorous. The nose and mouth were bulb suctioned and the was placed in the maternal abdomen for drying and attention. Cord was clamped and cut at one minute of life. Cord blood and segment obtained. Placenta delivered spontaneous, intact with a three vessel cord. Cervix/sulci/rectum were intact. A first degree perineal laceration was repaired in the normal standard fashion. Hemostasis obtained with dilute pitocin and fundal massage. Apgars were 8/9. Mother and baby doing well at the end of the delivery. [facility] Vaginal Delivery Charge Delivery Type Details: and 1st Degree LAC
[2025-10-24] MEDS ORDERED: ALBUTEROL HFA 8 GM INHALER INH PRN (11:31)
[2025-10-24] MEDS ORDERED: NON-FORMULARY MEDICATION (Docusate Sodium 100 MG) PO PRN (11:31)
[2025-10-24] MEDS ORDERED: ONDANSETRON 4 MG OD TAB PO PRN (11:31)
[2025-10-24] MEDS ORDERED: HYDROCORTISONE ACETATE 25 MG SUPP PR PRN (11:31)
[2025-10-24] MEDS: DIPHTHER/TETAN/PERTUS Vaccine (Tdap, Adol/Adult) 0.5mL IM ONE (12:04)
--- NOTE | 2025-10-24 12:20 | Anesthesia Procedure Note ---
Date of Service October 24, 2025 Anesthesia Post Epidural Note Vital Signs Vital Signs: Temp Pulse Resp BP Pulse Ox 37.2 C 53 L 20 111/58 L 99 10/24/25 09:00 10/24/25 12:07 10/24/25 10:30 10/24/25 12:07 10/24/25 11:03 Notes Mental Status: alert / awake / arousable and participated in evaluation Nausea / Vomiting: adequately controlled Pain: adequately controlled Airway Patency, RR, SpO2: stable & adequate BP & HR: stable & adequate Hydration State: stable & adequate Neuraxial Anesthesia: was administered and sensory block is resolving Anesthetic Complications: no major complications apparent Epidural: Removed without complications and With tip intact
[2025-10-24] MEDS: ACETAMINOPHEN 325 MG TAB PO PRN (14:10)
[2025-10-24] MEDS: BENZOCAINE 20% SPRY 85 APPLN/85 GM CAN EXT PRN (14:10)
[2025-10-24] MEDS: IBUPROFEN 600 MG TAB PO PRN (16:37)
[2025-10-24] MEDS: DOCUSATE SODIUM 100 MG CAP PO SCH (21:27)
[2025-10-24 22:04] VITALS: O2SAT 99
[2025-10-24] MEDS: SERTRALINE HCL 50 MG TABLET PO SCH ×2 (23:25→23:30)
[2025-10-24] MEDS: Nursing to Pharmacy Communication SCH (23:30)
[2025-10-25 00:44] VITALS: RESP 22
[2025-10-25] MEDS: LEVOTHYROXINE SODIUM 25 MCG TABLET PO SCH (06:37)
--- NOTE | 2025-10-25 07:44 | Obstetrical Progress Note ---
Date of Service October 25, 2025 Assessment & Plan (1) Encounter for assessment: Plan Doing well. Meeting goals. would like d/c later today. Instructions reviewed. f/u in 6 weeks. Day #:: 1 Subjective Ambulation: ambulating normally Voiding: no voiding problems Passing Gas:: Yes Diet Tolerance:: regular diet Lochia:: Small Feeding Type:: breast feeding Very crampy, 9-10/10 with breast feeding. Physical Exam Constitutional WD/WN, vitals as above Respiratory normal respiratory effort, lungs clear to auscultation Cardiovascular RRR, no murmur, no edema Extremities: + edema (+1); no calf tenderness Gastrointestinal (Abdomen) soft, nt, nd ff/nt 1 below u Psychiatric A+Ox3, euthymic affect Results & Data Vital Signs (Past 12 Hours) Vital Signs Temp Pulse Resp BP Pulse Ox O2 Del Method 10/25/25 03:44 36.4 C L 62 22 105/77 99 Room Air 10/25/25 00:43 36.4 C L 54 L 22 105/64 99 Room Air 10/24/25 20:00 36.7 C 60 16 107/70 99 Room Air
[2025-10-25] MEDS: PRENATAL VITAMIN 1 TAB PO SCH (07:53)
[2025-10-25 08:11] LABS: Hematocrit (blood only) 31.3 % (37.0-47.0); Hemoglobin 10.1 g/dL (12.0-16.0); Mean Corpuscular Hemoglobin 27.6 pg (25.0-34.0); Mean Corpuscular Volume 85.5 fL (80.0-100.0); Platelet Count 207 K/uL (130-400); RDW Standard Deviation 48.7 fL (36.4-46.3); Red Blood Count 3.66 M/uL (4.20-5.40); White Blood Count 10.70 K/ul (4.8-10.8)
[2025-10-25 09:51] VITALS: BP 115/76; PULSE 52; TEMP 98.2
== END 2025-10-25 13:15 | disposition home or self-care (01) | DRG 807 ==
LOC: OPB 03:37 → 4S1 03:39 → 4E2 13:51